=== PATIENT | male | born 1995 | race Caucasian/White ===

== ENCOUNTER 2022-12-07 22:51 | Emergency (ER) | payer BC, MEDICAID, SELFPAY ==
--- NOTE | 2022-12-07 | ECG_ITS ---
Test Reason : CHEST PAIN Blood Pressure : / mmHG Vent. Rate : 107 BPM Atrial Rate : 107 BPM P-R Int : 168 ms QRS Dur : 086 ms QT Int : 310 ms P-R-T Axes : 057 065 020 degrees QTc Int : 413 ms Sinus tachycardia T wave abnormality, consider inferior ischemia Abnormal ECG No previous ECGs available Referred By: Generic ED Physician Electronically Signed By:Jose Chan
[2022-12-07 23:06] VITALS: BP 166/99; PULSE 100; RESP 18; TEMP 36.8; O2SAT 98; BMI 32.5
[2022-12-08 01:11] LABS: MANUAL DIFF FLAG NO
[2022-12-08 01:13] LABS: Basophils Absolute Auto 0.1 X10*3/uL (0.0-0.2); Basophils Percent Auto 0.8 % (0-2); Eosinophils Percent Auto 0.3 % (0-4); Hematocrit 45.2 % (42.0-52.0); Hemoglobin 13.3 g/dl (14.0-18.0); Imm Gran Abs Auto 0.03 X10*3/uL (0.00-0.03); Imm Gran Pct Auto 0.3 % (0.0-0.4); Lymphocytes Absolute Auto 2.3 X10*3/uL (1.2-4.9); Mean Corpuscular HGB Conc 29.4 g/dl (31.0-36.0); Mean Corpuscular Hemoglobin 23.3 pg (27.0-33.0); Mean Corpuscular Volume 79.3 fL (80.0-98.0); Mean Platelet Volume 9.6 fL (9.4-12.4); Monocytes Absolute Auto 0.4 X10*3/uL (0.1-1.2); Monocytes Percent Auto 3.7 % (2-11); Neutrophils Absolute Auto 7.6 x10*3/uL (2.0-8.3); Neutrophils Percent Auto 72.9 % (45-73); Platelet Count 195 X10*3/uL (160-400); Red Cell Distribution Width 16.8 % (11.0-16.0); White Blood Count 10.4 X10*3/uL (4.8-10.8)
[2022-12-08 01:24] LABS: Anion Gap 16 (12-20); Blood Urea Nitrogen 8 mg/dL (9-16); Calcium 9.3 mg/dL (8.4-10.2); Carbon Dioxide 17 mmol/L (22-29); Chloride 113 mmol/L (96-108); Creatinine Clr Calc Pharmacy 93.9; Estimated Glomerular Filt Rate > 60; Glucose Random 91 mg/dL (60-115); Potassium 3.7 mmol/L (3.3-5.1); Sodium 142 mmol/L (135-145)
[2022-12-08 01:33] LABS: Troponin-I High Sensitivity < 3.5 ng/L (<3.5-35.0)
--- NOTE | 2022-12-08 01:53 | ED.CHESTPAIN ---
HPI - Chest Pain General Chief Complaint: Chest Pain Stated Complaint: pain in chest/ dizziness Time Seen by Provider: 12/08/22 01:53 Source: patient Mode of arrival: ambulatory Limitations: no limitations History of Present Illness HPI narrative: patient with history of bipolar disorder ADHD on adderall comes here for few days chest pain going on for a while feels anxious. When patient her heart rate was in 120s feeling dizzy lightheaded patient does have borderline hypertension but not taking any medication patient possibly took extra Adderall Related Data Allergies Allergy/AdvReac Type Severity Reaction Status Date / Time No Known Allergies Allergy Verified 12/07/22 23:09 Review of Systems Review of Systems: Yes all other systems are reviewed and are negative [facility] Social History Social History Advance Directives: No Physical Exam Vital Signs: Vital Signs: Last Vital Signs Temp 98.5 F 12/08/22 04:32 Pulse 102 H 12/08/22 04:32 Resp 15 12/08/22 04:32 BP 142/87 H 12/08/22 04:32 Pulse Ox 98 12/08/22 04:32 O2 Del Method 12/08/22 04:32 BMI result Body Mass Index 32.5 Appearance: Alert. Oriented X3. No acute distress. anxious Eyes: PERRLA, No Nystagmus ENT: Pharynx normal. Oral Mucosa moist Neck: Normal inspection. Neck supple. CVS: tachycardic. no murmur/rub or gallop Pulses normal. Respiratory: No respiratory distress. Equal air entry bilateral, no wheezing/rales/rhonchi Abdomen: Soft and nontender. Bowel sounds are present, no mass palpable, no CVA tenderness Skin: Skin warm and dry. Normal skin color. Normal skin turgor. Extremities: No lower extremity edema. No calf tenderness Neuro: Oriented X 3. No motor deficit. No sensory deficit. Medications Administered Discontinued Medications Generic Name Dose Route Start Last Admin Trade Name Freq PRN Reason Stop Dose Admin Lorazepam 2 mg 12/08/22 01:57 12/08/22 02:05 Lorazepam 1 Mg Tablet PO 12/08/22 01:58 2 mg ONCE ONE Administration Metoprolol Tartrate 25 mg 12/08/22 01:57 12/08/22 02:05 Metoprolol Tartrate 25 Mg Tablet PO 12/08/22 01:58 25 mg ONCE ONE Administration Protocol Medical Decision Making Medical Decision Making [facility] Narrative: patient admitted that he took extra Adderall likely the cause for anxiety and palpitation responded to Lopressor and Ativan will discharge patient home advised not to take over the prescribed dose of medications Lab Data [facility] Lab Attestation statement: I reviewed the patient's lab results. 12/08/22 01:00 12/08/22 01:06 Labs: Lab Results 12/08/22 12/08/22 12/08/22 Range/Units 01:00 01:00 01:06 WBC 10.4 (4.8-10.8) X10*3/uL RBC 5.70 (4.60-5.80) X10*6/uL Hgb 13.3 L (14.0-18.0) g/dl Hct 45.2 (42.0-52.0) % MCV 79.3 L (80.0-98.0) fL MCH 23.3 L (27.0-33.0) pg MCHC 29.4 L (31.0-36.0) g/dl RDW 16.8 H (11.0-16.0) % Plt Count 195 (160-400) X10*3/uL MPV 9.6 (9.4-12.4) fL Immature Gran % (Auto) 0.3 (0.0-0.4) % Neut % (Auto) 72.9 (45-73) % Lymph % (Auto) 22.0 (20-40) % [place] % (Auto) 3.7 (2-11) % Eos % (Auto) 0.3 (0-4) % Baso % (Auto) 0.8 (0-2) % Lymph # (Auto) 2.3 (1.2-4.9) X10*3/uL Marathon # (Auto) 0.4 (0.1-1.2) X10*3/uL Eos # (Auto) 0.0 (0.0-0.4) X10*3/uL Baso # (Auto) 0.1 (0.0-0.2) X10*3/uL Abs Immat Gran (auto) 0.03 (0.00-0.03) X10*3/uL Absolute Neuts (auto) 7.6 (2.0-8.3) x10*3/uL Absolute Nucleated RBC 0.000 (0.0-0.012) X10*3/uL Nucleated RBC % (auto) 0.0 (0.0-0.2) /100WBC Sodium 142 (135-145) mmol/L Potassium 3.7 (3.3-5.1) mmol/L Chloride 113 H (96-108) mmol/L Carbon Dioxide 17 L (22-29) mmol/L Anion Gap 16 (12-20) BUN 8 L (9-16) mg/dL Creatinine 1.19 (0.5-1.4) mg/dL Estim Creat Clear Calc 93.9 Estimated GFR > 60 Random Glucose 91 (60-115) mg/dL Calcium 9.3 (8.4-10.2) mg/dL Troponin I High Sens < 3.5 (<3.5-35.0) ng/L Urine Opiates Screen (Not Detect) Urine Fentanyl Screen (Not Detect) Ur Barbiturates Screen (Not Detect) Ur Phencyclidine Scrn (Not Detect) Ur Amphetamines Screen (Not Detect) U Benzodiazepines Scrn (Not Detect) Urine Cocaine Screen (Not Detect) U Marijuana (THC) Screen (Not Detect) 12/08/22 Range/Units 02:04 WBC (4.8-10.8) X10*3/uL RBC (4.60-5.80) X10*6/uL Hgb (14.0-18.0) g/dl Hct (42.0-52.0) % MCV (80.0-98.0) fL MCH (27.0-33.0) pg MCHC (31.0-36.0) g/dl RDW (11.0-16.0) % Plt Count (160-400) X10*3/uL MPV (9.4-12.4) fL Immature Gran % (Auto) (0.0-0.4) % Neut % (Auto) (45-73) % Lymph % (Auto) (20-40) % Marathon % (Auto) (2-11) % Eos % (Auto) (0-4) % Baso % (Auto) (0-2) % Lymph # (Auto) (1.2-4.9) X10*3/uL Marathon # (Auto) (0.1-1.2) X10*3/uL Eos # (Auto) (0.0-0.4) X10*3/uL Baso # (Auto) (0.0-0.2) X10*3/uL Abs Immat Gran (auto) (0.00-0.03) X10*3/uL Absolute Neuts (auto) (2.0-8.3) x10*3/uL Absolute Nucleated RBC (0.0-0.012) X10*3/uL Nucleated RBC % (auto) (0.0-0.2) /100WBC Sodium (135-145) mmol/L Potassium (3.3-5.1) mmol/L Chloride (96-108) mmol/L Carbon Dioxide (22-29) mmol/L Anion Gap (12-20) BUN (9-16) mg/dL Creatinine (0.5-1.4) mg/dL Estim Creat Clear Calc Estimated GFR Random Glucose (60-115) mg/dL Calcium (8.4-10.2) mg/dL Troponin I High Sens (<3.5-35.0) ng/L Urine Opiates Screen Not Detected (Not Detect) Urine Fentanyl Screen Not Detected (Not Detect) Ur Barbiturates Screen Not Detected (Not Detect) Ur Phencyclidine Scrn Not Detected (Not Detect) Ur Amphetamines Screen POSITIVE H (Not Detect) U Benzodiazepines Scrn Not Detected (Not Detect) Urine Cocaine Screen Not Detected (Not Detect) U Marijuana (THC) Screen Not Detected (Not Detect) Independent Interpretation I performed an independent interpretation of an: EKG Interpretation: sinus tachycardia heart rate 107 beats per minute nonspecific T-wave changes no acute ischemia Discharge Plan Discharge Clinical Impression: Atypical chest pain, Amphetamine abuse Patient Disposition: Home, Self-Care Instructions: Chest Pain (ED), Methamphetamine Abuse (ED) Additional Instructions: do not take medication over the prescribed dose rest at home
[2022-12-08 01:59] VITALS: BP 155/84; PULSE 119; RESP 16; TEMP 36.4; O2SAT 98
[2022-12-08] MEDS: LORazepam 1 MG TABLET 2 MG PO (02:05)
[2022-12-08] MEDS: Metoprolol Tartrate 25 MG TABLET PO (02:05)
[2022-12-08 02:20] LABS: Amphetamine Screen Urine POSITIVE (Not Detect); Barbiturates, Urine Not Detected (Not Detect); Benzodiazepines Screen Urine Not Detected (Not Detect); Cannabinoid Screen Urine Not Detected (Not Detect); Cocaine Screen Urine Not Detected (Not Detect); Fentanyl, urine Not Detected (Not Detect); Opiate Screen Urine Not Detected (Not Detect); Phencyclidine Screen Urine Not Detected (Not Detect)
[2022-12-08 04:32] VITALS: BP 142/87; PULSE 102; RESP 15; TEMP 36.9; O2SAT 98
[2022-12-08 04:44] VITALS: PULSE 110
--- NOTE | 2022-12-09 13:14 | MHC.CARE ---
CARE Team received call regarding Pt Candy (they/them) from Rita Spring [phone], shift manger at the [facility] who reported Pt has been staying at the [facility] on but signed themselves out AMA on Tuesday and they have been looking for them. CARE Team was not able to disclose information; CARE notified Rita contact information would be passed along. CARE Team provided Rita with crisis information for [employer], [facility] and [facility]
== END 2022-12-08 04:57 | disposition home or self-care (01) ==
PROVIDERS: Emergency Medicine; Emergency Provider Internal Medicine; PCP Specialist
DX: R07.89 Other chest pain (principal); F15.10 Other stimulant abuse, uncomplicated; I10 Essential (primary) hypertension; F12.90 Cannabis use, unspecified, uncomplicated; Z79.899 Other long term (current) drug therapy
CPT/HCPCS: 36415; 80048; 80307; 84484; 85025; 93005; 99284; 99285